=== PATIENT | male | born 1990 | race Caucasian/White ===

== ENCOUNTER 2021-06-29 21:57 | Emergency (ER) | payer SELFPAY ==
[~2021-06-29] VITALS: Ht 182.9 cm; Wt 90.7 kg
[2021-06-30] MEDS ORDERED: CYCL10 PO (00:47)
== END 2021-06-30 01:18 | disposition home or self-care (01) ==
LOC: ER 21:57
DX: R07.89 Other chest pain (principal)
CPT/HCPCS: 71045; 93005; 93010; 96374; 99284-25; A9270; J1885